=== PATIENT | male | born 1955 | race Caucasian/White ===

== ENCOUNTER 2017-02-17 14:07 | Emergency (ER) | payer BC ==
--- NOTE | 2017-02-17 14:57 | ERNOTE ---
Integumentary HPI - Narrative Date of Service: 02/17/17 - General Presenting Symptoms: other - Elbow redness Time Seen by Provider: 02/17/17 14:46 Source: patient Exam Limitations: no limitations - Immun/Allergies/Home Medications Immunizations: IMMUNIZATION HX History of Influenza Vaccine Yes Allergies/Adverse Reactions: Allergies Allergy/AdvReac Type Severity Reaction Status Date / Time No Known Allergies Allergy Unverified 02/17/17 14:19 Home Medications: HOME MEDICATIONS Sulfamethoxazole/Trimethoprim [Bactrim Ds] 1 tab PO BID #20 tab 02/17/17 [Last Taken Unknown] predniSONE [Prednisone] 2 tab PO DAILY #10 tab 02/17/17 [Last Taken Unknown] - Pain Pain Score: 0 - at present - History of Present Illness Narrative: Pt reports onset of R. elbow redness this am at 08:30, then developed increased swelling to the area as the day progressed. He denies any open wounds or injuries preceding the symptoms. Denies any pain to the area at present, does note some occasional tenderness. Some discomfort with full extension, which he describes as a tightness. Date (Duration): 02/17/17 Time (Timing): 08:30 Location: Reports: other - R. elbow Quality: Reports: itching - yesterday Exposure: Reports: no cause identified Modifying Factors - (Improves): Reports: nothing Modifying Factors - (Worsens): Reports: other - palpation, extension Associated Symptoms: Reports: edema. Denies: blisters, fever, headache, malaise Review of Systems - Review of Systems Constitutional: Absent: fever, chills, fatigue, malaise Respiratory: Absent: shortness of breath, cough Gastrointestinal/Abdominal: Absent: nausea, vomiting Musculoskeletal: Present: joint swelling - R. elbow, other - elbow redness Skin: Absent: other - no drainage or open wound - Patient's Past Medical History Patient History - Medical: No pertinent hx Patient History - Cardiac/Respiratory: No pertinent hx Patient History - Cancer: No Hx of Cancer Patient History - Surgical Procedures: No surgical history Patient History - Other: None - Social History Living Situations: home Psych History: No pertinent hx Smoking Status: Former smoker Have you smoked in the past 12 months: No Do you dip or chew tobacco: No Alcohol Use: none Drug Use: none - Immunizations History of Influenza Vaccine: Yes Physical Exam - Physical Exam General Appearance: Present: wd/wn, alert, no apparent distress Respiratory: Present: no respiratory distress, normal breath sounds. Absent: rales, rhonchi, wheezing Cardiovascular/Chest: Present: regular rate, rhythm, no murmur Extremity Exam: Present: normal range of motion - R. elbow, joint swelling - R. elbow, other - soft tissue tenderness along R. elbow, 3cm x3cm erythema to R. elbow with central papule Neurological Exam: Present: alert, oriented Skin Exam: Present: normal color, warm/dry ED Progress - Date and Time Seen: Date and Time: 02/17/17 15:10 Olecranon bursitis vs cellulitis from insect sting. Reviewed red flags and POC - Vital Signs Patient's Vital Signs:: I have reviewed the patient's vital signs. Vital Signs: Vital Signs 02/17/17 14:13 Temperature 36.6 C Pulse Rate 91 Respiratory 18 Rate Blood Pressure 158/108 O2 Sat by Pulse 95 Oximetry - Progress/Reassessment Chief Complaint: Cellulitis Progress:: Unchanged Departure Clinical Impression: Cellulitis of right elbow, Olecranon bursitis, right elbow - Departure Disposition: Home self-care Condition: Good Instructions: Elbow Bursitis, [id number] Additional Instructions: Wear pillo wrap to elbow to help with pain and swelling, remove daily to monitor for worsening redness Complete treatment as ordered If your symptoms worsen or do not improve follow up with orthopedic department Return to ER if your develop fever, chills or any other concerning symptoms Prescriptions: Sulfamethoxazole/Trimethoprim [Bactrim Ds] 1 tab PO BID #20 tab predniSONE [Prednisone] 2 tab PO DAILY #10 tab
[2017-02-17 19:25] VITALS: BP 152/89
== END 2017-02-17 15:25 | disposition home or self-care (01) ==
LOC: ER 14:07
DX: M70.21 Olecranon bursitis, right elbow (principal)